=== PATIENT | male | born 1960 | race Caucasian/White ===

== ENCOUNTER 2020-06-13 12:18 | Observation (INO) ==
[~2020-06-13 12:18] MED LIST: Bacitracin 50,000 UNIT, Polymyxin B Sulfate 500,000 UNIT, Sodium Chloride IRRigation 1,... IR ONE
[2020-06-13] MEDS ORDERED: CeFAZolin Syr 2,000MG/20 ML 2,000 MG/20 ML SYRINGE IVPB ONE (12:43)
[2020-06-13] MEDS ORDERED: Ringers Solution, Lactated 1,000 ML IVC SCH ×2 (12:45→14:15)
[2020-06-13] MEDS ORDERED: Ondansetron 4 MG/2 ML VIAL IVP PRN (14:05)
[2020-06-13] MEDS ORDERED: *HR* OxyCODONE Immed Rel 5 MG TABLET PO PRN (14:05)
[2020-06-13] MEDS ORDERED: Ketorolac 30 MG/ML VIAL IVP PRN (14:05)
[2020-06-13] MEDS ORDERED: *HR* FentaNYL (PF) 100 MCG/2 ML VIAL ONE (14:50)
[2020-06-13] MEDS ORDERED: *HR* Midazolam HCl 2 MG/2 ML VIAL ONE (14:50)
[2020-06-13] MEDS ORDERED: *HR* Propofol 200 MG/20 ML VIAL IVP ONE (14:51)
[2020-06-13] MEDS ORDERED: *HR* Rocuronium Bromide 50 MG/5 ML VIAL ONE (14:52)
[2020-06-13] MEDS ORDERED: Ondansetron 4 MG/2 ML VIAL ONE (14:58)
[2020-06-13] MEDS ORDERED: *HR* Succinylcholine 200 MG/10 ML VIAL IVP ONE (14:58)
[2020-06-13] MEDS ORDERED: *HR* PHENYLEPHRINE 1,000 MCG/10 ML SYRINGE IVP ONE (15:36)
[2020-06-13] MEDS ORDERED: *HR* HYDROMORPHONE 2 MG/ML VIAL ONE (16:42)
[2020-06-13] MEDS: *HR* HYDROmorphone PF 0.5 MG/0.5 ML SYRINGE IVP PRN ×6 (17:14→18:05)
[2020-06-13] MEDS ORDERED: *HR* HYDROmorphone (PF) 1 MG/ML SYRINGE ONE (17:58)
[2020-06-13] MEDS ORDERED: Acetaminophen 325 MG TABLET PO PRN (19:27)
[2020-06-13] MEDS ORDERED: Naloxone 0.4 MG/ML INJ IVP PRN (19:27)
[2020-06-13] MEDS: Divalproex (24 HR) 500 MG TABLET PO SCH (19:45)
[2020-06-13] MEDS: CeFAZolin 2 GM/120 ML BAG IVPB SCH (23:35)
[2020-06-14] MEDS: CeFAZolin 2 GM/120 ML BAG IVPB SCH (07:38)
[2020-06-14] MEDS: *HR* HYDROcodone/Acet 5/325 mg TABLET PO PRN ×2 (07:38→21:38)
[2020-06-14] MEDS: Ringers Solution, Lactated 1,000 ML IVC SCH ×3 (07:39→17:05)
[2020-06-14] MEDS: tiZANidine 4 MG TABLET PO PRN (10:05)
[2020-06-14] MEDS: Pregabalin 50 MG CAPSULE PO SCH ×2 (10:05→21:13)
[2020-06-14] MEDS ORDERED: diazePAM 5 MG TABLET PO PRN (12:20)
[2020-06-14] MEDS: *HR* OxyCODONE Immed Rel 5 MG TABLET PO PRN (15:38)
[2020-06-14] MEDS: Divalproex (24 HR) 500 MG TABLET PO SCH (21:13)
[2020-06-15] MEDS: *HR* OxyCODONE Immed Rel 5 MG TABLET PO PRN ×3 (03:07→14:49)
[2020-06-15] MEDS: Ringers Solution, Lactated 1,000 ML IVC SCH (03:07)
[2020-06-15] MEDS: Pregabalin 50 MG CAPSULE PO SCH (08:35)
[2020-06-15 11:09] VITALS: BP 108/60
[2020-06-15] MEDS: tiZANidine 4 MG TABLET PO PRN (14:49)
== END 2020-06-15 15:51 | disposition home or self-care (01) ==
LOC: SAMDAY 12:18 → 3NENU 12:18
PROVIDERS: ADMIT Orthopaedic Surgery Orthopaedic Surgery of the Spine; ATTEND Orthopaedic Surgery Orthopaedic Surgery of the Spine

== ENCOUNTER 2021-07-04 12:05 | Inpatient (IN) ==
[2021-07-04] MEDS ORDERED: Isovue-370 500 ML BOTTLE IVP ONE (12:49)
[2021-07-04] MEDS ORDERED: Aspirin 325 MG TABLET PO ONE (12:50)
[2021-07-04 13:36] LABS: Bilirubin,Urine Negative (Negative); Blood,Urine Negative (Negative); Clarity,Urine Clear (Clear); Color,Urine Light-Yellow (Yellow); Glucose,Urine (UA) Normal (Normal); Ketones,Urine Negative (Negative); Leukocyte Esterase,Urine Negative (Negative); Nitrite,Urine Negative (Negative); Protein,Urine Negative (Neg-Trace); Specific Gravity,Urine 1.022 (1.010-1.025); Urobilinogen,Urine Normal (Normal)
[2021-07-04 13:55] LABS: Hematocrit 40.4 % (37.5-50.1); Hemoglobin 13.9 g/dL (12.9-16.9); Mean Corpuscular HGB Conc 34.4 g/dL (31.6-35.5); Mean Corpuscular Hemoglobin 32.3 pg (28.0-33.3); Mean Corpuscular Volume 93.7 fL (83.0-100.0); Mean Platelet Volume 10.2 fL (9.4-12.4); Platelet Count 186 K/mcL (140-400); Red Blood Count 4.31 M/mcL (4.19-5.50); White Blood Count 5.5 K/mcL (4.3-11.1)
[2021-07-04 14:04] LABS: INR 1.1
[2021-07-04 14:07] LABS: Activated Partial Thrombo Time 31.1 Seconds (26.0-36.0)
[2021-07-04 14:15] LABS: BUN/Creatinine Ratio 24 (6-26); Blood Urea Nitrogen 20 mg/dL (8-23); Calcium 9.5 mg/dL (8.6-10.3); Carbon Dioxide 26 mEq/L (23-29); Chloride 106 mEq/L (98-107); Glucose 94 mg/dL (70-105); Osmolality,Calculated 286 (280-300); Potassium 4.3 mEq/L (3.5-5.1); Sodium 137 mEq/L (136-145); Troponin I < 0.03 ng/mL (< 0.04); eGFR For African Americans > 60 (> 60); eGFR For Non-African Americans > 60 (> 60)
[2021-07-04] MEDS ORDERED: Mag Hydrox/Al Hydrox/Simeth 30 ML UDC PO PRN (16:35)
[2021-07-04] MEDS ORDERED: Melatonin 3 MG TABLET PO PRN (16:35)
[2021-07-04] MEDS ORDERED: MOM Conc 10 ML UD.LIQ PO PRN (16:35)
[2021-07-04] MEDS ORDERED: Naloxone 0.4 MG/ML INJ IVP PRN (16:35)
[2021-07-04] MEDS ORDERED: Ondansetron ODT 4 MG TAB.RAPDIS SL PRN (16:35)
[2021-07-04] MEDS ORDERED: Perflutren Lipid Microsphere 1.3 ML in 0.9 % Sodium Chloride 8.7 ML IVP PRN (16:38)
[2021-07-04] MEDS: Nicotine 21 MG PATCH.TD24 TD SCH (18:23)
[2021-07-04] MEDS: Divalproex (24 HR) 500 MG TABLET PO SCH ×2 (19:35→19:42)
[2021-07-05 01:24] LABS: Hematocrit 41.3 % (37.5-50.1); Mean Corpuscular HGB Conc 33.9 g/dL (31.6-35.5); Mean Corpuscular Hemoglobin 31.6 pg (28.0-33.3); Mean Corpuscular Volume 93.2 fL (83.0-100.0); Mean Platelet Volume 10.2 fL (9.4-12.4); Platelet Count 175 K/mcL (140-400); Red Blood Count 4.43 M/mcL (4.19-5.50); Red Cell Distribution Width 13.1 % (11.5-14.5); White Blood Count 7.4 K/mcL (4.3-11.1)
[2021-07-05 01:45] LABS: BUN/Creatinine Ratio 26 (6-26); Blood Urea Nitrogen 17 mg/dL (8-23); Calcium 9.5 mg/dL (8.6-10.3); Carbon Dioxide 23 mEq/L (23-29); Chloride 106 mEq/L (98-107); Chol/HDL Ratio 6.5 (0-4.9); Cholesterol 222 mg/dL (< 200); Glucose 95 mg/dL (70-105); HDL Cholesterol 34 mg/dL (40-59); LDL Cholesterol,Calculated 142 mg/dL (< 100); Osmolality,Calculated 283 (280-300); Potassium 3.9 mEq/L (3.5-5.1); Sodium 136 mEq/L (136-145); Triglycerides 229 mg/dL (< 150); eGFR For African Americans > 60 (> 60); eGFR For Non-African Americans > 60 (> 60)
[2021-07-05] MEDS: *HR* Enoxaparin 40 MG/0.4 ML SYRINGE SQ SCH (06:06)
[2021-07-05] MEDS ORDERED: Acetaminophen 325 MG TABLET PO PRN (06:40)
[2021-07-05 08:38] LABS: Estimated Average Glucose 105 mg/dl; Hemoglobin A1C 5.3 %
[2021-07-05] MEDS ORDERED: Aspirin 81 MG TAB.CHEW PO SCH (09:00)
[2021-07-05] MEDS: Nicotine 21 MG PATCH.TD24 TD SCH (09:12)
[2021-07-05] MEDS: Divalproex (24 HR) 500 MG TABLET PO SCH (19:49)
[2021-07-05] MEDS ORDERED: DEPAKOTE 500 MG PO SCH (21:00)
[2021-07-06] MEDS: *HR* Enoxaparin 40 MG/0.4 ML SYRINGE SQ SCH (05:13)
[2021-07-06] MEDS ORDERED: Aspirin 325 MG TABLET PO SCH (09:00)
[2021-07-06] MEDS ORDERED: Lidocaine Viscous Oral Soln 15 ML SOLUTION MM PRN (10:32)
[2021-07-06] MEDS ORDERED: 0.9 % Sodium Chloride 500 ML IVC ONE (10:32)
[2021-07-06] MEDS ORDERED: *HR* Midazolam HCl 2 MG/2 ML VIAL IVP PRN (10:37)
[2021-07-06] MEDS: *HR* Midazolam HCl 5 MG/5 ML VIAL IVP ONE ×4 (10:55→11:08)
[2021-07-06] MEDS: *HR* FentaNYL (PF) 100 MCG/2 ML VIAL IVP PRN ×4 (10:55→11:08)
[2021-07-06 12:58] VITALS: BP 117/71; PULSE 70; TEMP 97.9; O2SAT 96
[2021-07-06] MEDS: Nicotine 21 MG PATCH.TD24 TD SCH (13:18)
== END 2021-07-06 17:02 | disposition home or self-care (01) | DRG 66 ==
LOC: EMEROOARM 12:05 → 3BNU 12:05 → SUATTDRO 16:51 → 3BNU 17:46
PROVIDERS: ADMIT Student in an Organized Health Care Education/Training Program; ATTEND Registered Nurse